=== PATIENT | male | born 1935 | race Caucasian/White ===

== ENCOUNTER 2019-11-26 15:30 | Emergency (ER) | payer MEDICARE, OTHER ==
[~2019-11-26] VITALS: Ht 170.2 cm; Wt 65.3 kg
[2019-11-26] MEDS ORDERED: OMEPRAZOLE 20 M20 M1 PO (15:44)
[2019-11-26] MEDS ORDERED: FAMOTIDINE 20 M20 MG PO (15:44)
[2019-11-26] MEDS ORDERED: LIVER COMPLEX1 EACH PO (15:45)
[2019-11-26 16:08] LABS: ABSOLUTE EOSINOPHILS 0.3 thou/uL (0.0-0.7); ABSOLUTE LYMPHOCYTES 0.7 thou/uL (0.8-5.3); ABSOLUTE MONOCYTES 0.7 thou/uL (0.0-1.2); ABSOLUTE NEUTROPHILS 6.8 thou/uL (1.6-8.1); BASOPHILS 0.4 %; EOSINOPHILS 3.2 %; HEMATOCRIT 47.1 % (42.0-52.0); HEMOGLOBIN 16.1 gm/dL (14.0-18.0); LYMPHOCYTES 8.3 %; MCH 31.7 pg (26.0-34.0); MCHC 34.2 g/dL (28.0-37.0); MCV 92.8 fL (80.0-100.0); MPV 8.1 fl. (7.2-11.1); NUCLEATED RBCS 0 /100WBC; PLATELET COUNT* 215 thou/uL (150-400); POLYS 80.1 %; RBC 5.08 mil/uL (4.50-6.00); WBC 8.5 thou/uL (4.0-11.0)
[2019-11-26 16:15] LABS: CALCIUM 8.7 mg/dL (8.5-10.1); POTASSIUM 3.9 mmol/L (3.5-5.1)
[2019-11-26 16:18] LABS: APTT 27.3 Seconds (25.0-31.3); PROTIME 10.4 Seconds (9.20-11.50)
[2019-11-26 16:26] LABS: ALBUMIN 3.2 g/dL (3.4-5.0); TOTAL BILIRUBIN 0.6 mg/dL (<0.1-1.0)
--- NOTE | 2019-11-26 16:40 | EKG ---
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 Surgery: : 1935 Requested By: Elise Bell Order Number: [id number] MD: Otis Thomas Measurements Intervals [place] Rate: 97 P: 76 NJ: 180 QRS: 42 QRSD: 99 T: 19 QT: 342 QTc: 435 Interpretive Statements Sinus rhythm Probable left atrial enlargement Low voltage, extremity leads Baseline wander in lead(s) V6 No previous ECG available for comparison Electronically Signed On 11-26-2019 16:40:35 CDT by Otis Thomas [email or web address] <ELECTRONICALLY SIGNED> By: Otis Thomas MD, [facility] 11/26/19 1640 1539 1539 Otis Thomas MD, FAC /EPI
[2019-11-26] MEDS ORDERED: VENTOLIN HFA 1818 GM INH (19:06)
[2019-11-26] MEDS ORDERED: ZPAK PO (19:06)
[2019-11-26] MEDS ORDERED: MEDROLDOSEPACK PO (19:06)
[2019-11-26 19:24] VITALS: BP 141/80
== END 2019-11-26 19:25 | disposition home or self-care (01) ==
LOC: M.ERS 15:30
PROVIDERS: Nurse Practitioner Family
DX: J44.1 Chronic obstructive pulmonary disease with (acute) exacerbation (principal); J98.8 Other specified respiratory disorders; Z20.828 Contact with and (suspected) exposure to other viral communicable diseases; Z87.891 Personal history of nicotine dependence; Z88.8 Allergy status to other drugs, medicaments and biological substances

== ENCOUNTER → 2020-05-08 | Outpatient (CLI) | payer MEDICARE, OTHER ==
[~2020-05-08] MED LIST: ASA81BEC PO; COD LIVER OIL1 EAC4 PO; DICLOFENAC PO; FAMOTIDINE 20 M20 MG PO; LIVER COMPLEX1 EACH PO; MEDROLDOSEPACK PO; OMEPRAZOLE40 MG PO; VENTOLIN HFA 1818 GM INH; ZPAK PO
== END ==
LOC: M.PC 08:14
PROVIDERS: ATTEND Physical Medicine & Rehabilitation
DX: M51.16 Intervertebral disc disorders with radiculopathy, lumbar region (principal); M47.816 Spondylosis without myelopathy or radiculopathy, lumbar region

== ENCOUNTER → 2020-06-08 | Outpatient (CLI) | payer MEDICARE, OTHER ==
--- NOTE | 2020-06-13 07:50 | PF ---
[address] [address] PULMONARY FUNCTION REPORT Name: SWAPNA WHYTE [facility] [id number] Admission: 06/08/20 Attend Phys: Earlene Purvis Discharge: Date of : 39 Report #: [id number] THIS REPORT FOR: cc: Aamir Cazares Vincent R. DO ~ Benjamin Loredo MD DATE OF SERVICE: 06/08/2020 The FEV1/FVC ratio is decreased to 45% with an FVC normal at 90% and FEV1 decreased to 59%. The [id number] is also decreased to 30%. After the administration of a bronchodilator, there is no significant change in any of these values. The patient's post-bronchodilator FEV1 is noted to be 1.26 liters. The patient's flow volume loop is concave upwards. The total lung capacity is normal at 99% with a residual volume close to the upper limit of normal range at 119%. The DLCO as adjusted for hemoglobin is markedly decreased to 33%. IMPRESSION: Per ATS criteria, the patient has moderate obstruction without evidence of reversibility; however, it is noted that there is a marked reduction in the FEV1/FVC ratio and therefore the patient's obstruction may in fact be more severe than is indicated by these values alone. Residual volume is close to the upper limit of normal range on lung volumes due to underlying obstruction. The total lung capacity is normal. The DLCO as adjusted for hemoglobin is severely decreased to only 33%. <ELECTRONICALLY SIGNED> By: Benjamin Loredo MD 06/13/20 0750 2228 [id number] Loredo MD /nt
== END ==
LOC: M.PUL 09:07
PROVIDERS: ATTEND Family Medicine
DX: J44.9 Chronic obstructive pulmonary disease, unspecified (principal)

== ENCOUNTER 2020-08-24 09:51 | Observation (INO) | payer MEDICARE, OTHER ==
[~2020-08-24] VITALS: Ht 162.6 cm; Wt 61.6 kg
--- NOTE | ~2020-08-24 | CON ---
[address] [address] CONSULTATION Name: SWAPNA WHYTE Room: [address] Etienne Randle#: [id number] Admission: 08/24/20 Attend Phys: Earlene Montelongo Discharge: Date of : 39 Report #: [id number] THIS REPORT FOR: cc: Aamir Cazares Vincent R. DO Liston, Michael J. MD [facility] ~ DOC #: [id number] cc: Aamir Glover MD CARDIOLOGY CONSULTATION INDICATIONS: Chest discomfort. HISTORY OF PRESENT ILLNESS: The patient is a very pleasant 85-year-old gentleman with history of coronary artery disease based on the findings of a coronary calcium score of 459. Stress testing a little less than 1 year ago showed normal LV systolic function with no evidence of infarct or ischemia. The patient was admitted in the hospital after having mid epigastric pressure and tenderness awakening him from sleep for the past couple of weeks. He states that he wakes up and has to sit upright for relief of his symptoms. He spends the rest of the night in an upright position, which relieves his discomfort. More recently, he has noted that he has also had some fullness and tightness in the throat area, which he reports being relieved if he gets up and moves around. He has intermittently been taking Protonix and Pepcid. He did stop this therapy several weeks ago as he was feeling this might be contributing to some fatigue he was experiencing. He had onset of his epigastric fullness and symptoms about that time. He has occasional nausea and vomiting with the discomfort, but no diaphoresis. There is no radiation of the discomfort. EKG on arrival shows sinus rhythm without significant ST segment or T-wave abnormality. There are unifocal premature ventricular contractions noted. Troponin is less than 0.06 on 2 separate occasions. He is not having any significant discomfort at the time of my interview. None of his symptomatology is exertional in nature. PAST MEDICAL HISTORY: 1. Coronary artery disease as outlined above. 2. Gastroesophageal reflux. 3. Pilonidal cyst resection many years ago. PAST SURGICAL HISTORY: 1. [place] [address] CONSULTATION Name: SWAPNA WHYTE Room: [address] Jer#: [id number] Admission: 08/24/20 Attend Phys: Earlene Montelongo Discharge: Date of : 39 Report #: [id number] 2. Laser surgery to his prostate. 3. Cataract removal. FAMILY HISTORY: Essentially noncontributory. The patient's mother had CHF, but there was no history of coronary artery disease. No history of sudden in the family. SOCIAL HISTORY: The patient is . He drinks alcohol rarely. He does not smoke. 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 ALLERGIES: TETRACYCLINE CAUSES A RASH ON HIS UPPER TRUNK. CURRENT MEDICATIONS: He is taking Protonix and Pepcid presently. REVIEW OF SYSTEMS: The 14-point review of systems is positive for intermittent cough. He has pneumonia as a child. He reports palpitations for the past 5 years. He reports chest discomfort as outlined above. He reports trace ankle edema noted on physical exam recently. He reports vomiting without hematemesis. He reports possible ulcers. He reports blood in the urine after his laser prostatectomy. He has seasonal allergies and medical allergies as outlined above. 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 He wears glasses without acute visual change. He has decreased hearing and wears dentures. Otherwise, 14-point review of systems was unremarkable. PHYSICAL EXAMINATION: VITAL SIGNS: Stable. Blood pressure 176/111, pulse 105. GENERAL: This is a pleasant elderly gentleman in no distress. Mood and affect appropriate. HEENT: Extraocular muscles intact. Mucous membranes are moist. NECK: Examination of the neck shows no jugular venous distention. I do not appreciate carotid bruit. CHEST: Reveals clear lung macias without wheezes or rales. CARDIAC: Reveals a regular rhythm. I do not appreciate gallop or murmur. ABDOMEN: Examination of the abdomen reveals normal bowel sounds. The abdomen is soft and nontender. EXTREMITIES: Examination of the extremities show no edema. SKIN: Warm and dry. LABORATORY DATA: A 12-lead EKG shows sinus rhythm with no significant ST segment abnormality. There are occasional unifocal premature ventricular contractions noted. Echocardiogram shows normal LV systolic function, grade I diastolic dysfunction. No evidence of chamber enlargement [place] [address] CONSULTATION Name: SWAPNA WHYTE Room: [address] Etienne Randle#: [id number] Admission: 08/24/20 Attend Phys: Earlene Montelongo Discharge: Date of : 39 Report #: [id number] Labs are reviewed. Sodium 141, potassium 3.5, chloride 104, bicarbonate 30, BUN 11, creatinine 0.9, serum glucose 106. LFTs within normal limits. Troponin less than 0.06 on 2 separate occasions. NT-proBNP 559. Coags within normal limits. Hemoglobin 16.5, white blood cell count 7.4 and platelet count 233,000. Chest x-ray showed no acute cardiopulmonary abnormality. IMPRESSION AND RECOMMENDATION: 1. Chest discomfort, atypical for angina or ischemic coronary disease. I suspect this is gastrointestinal in nature. I would recommend GI evaluation and upper GI. He is ruled out for myocardial infarction. If the pain persists and no source is found with EGD, we would consider outpatient stress testing. 2. Coronary artery disease, presently stable. I would recommend a daily aspirin after his GI evaluation. We would recommend we evaluate lipid status to see if lipid lowering would be indicated which likely is. 3. Hypertension. Blood pressure moderately elevated. The patient is not traditionally on blood pressure medications at home. He may benefit from low dose beta dick, which will be started at this time. 4. PVCs generally asymptomatic. No specific treatment at this time. 5. Grade I diastolic dysfunction on echocardiogram, age appropriate. MD SHELLI OatesL/MARVIN By: 1545 [id number] Glover MD, FACC /nt
[2020-08-24 09:54] VITALS: BP 190/110
[2020-08-24] MEDS ORDERED: ARTIFICIAL TEAR1510 OPHTHALMIC (09:57)
[2020-08-24 10:17] LABS: ABSOLUTE EOSINOPHILS 0.1 thou/uL (0.0-0.7); ABSOLUTE MONOCYTES 0.5 thou/uL (0.0-1.2); ABSOLUTE NEUTROPHILS 5.7 thou/uL (1.6-8.1); EOSINOPHILS 1.6 %; WBC 7.4 thou/uL (4.0-11.0)
[2020-08-24 10:20] LABS: ABSOLUTE BASOPHILS 0.1 thou/uL (0.0-0.2); BASOPHILS 0.8 %; HEMATOCRIT 49.2 % (42.0-52.0); HEMOGLOBIN 16.5 gm/dL (14.0-18.0); LYMPHOCYTES 13.8 %; MCH 30.9 pg (26.0-34.0); MCHC 33.5 g/dL (28.0-37.0); MCV 92.3 fL (80.0-100.0); MONOCYTES 6.4 %; MPV 8.5 fl. (7.2-11.1); NUCLEATED RBCS 0 /100WBC; PLATELET COUNT* 233 thou/uL (150-400); POLYS 77.4 %; RBC 5.32 mil/uL (4.50-6.00); RDW-CV 13.9 % (10.5-14.5)
[2020-08-24 10:22] LABS: CALCIUM 9.6 mg/dL (8.5-10.1); CREATININE 0.9 mg/dL (0.6-1.3); POTASSIUM 3.5 mmol/L (3.5-5.1)
[2020-08-24 10:33] LABS: ALBUMIN 3.4 g/dL (3.4-5.0); MAGNESIUM 2.3 mg/dL (1.8-2.4); TOTAL PROTEIN 7.6 g/dL (6.4-8.2)
[2020-08-24 14:33] VITALS: BP 176/111
--- NOTE | 2020-08-24 15:48 | EKG ---
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 08/24/20 1547 0956 0956 Otis Thomas MD, [facility] /EPI
[2020-08-24 19:30] VITALS: BP 109/64
--- NOTE | 2020-08-24 23:28 | NUR ---
ASSUMED PATIENT CARE AT 1930. PATIENT UP IN CHAIR. REASSESMENT CHARTED. CURRENTLY DENIES ANY CHEST PAIN. NOTED IMPROVEMENT IN BP FROM ADMINISTRATION OF METROPROLOL ON PREVIOUS SHIFT. CONTINUE TO MONITOR.
[2020-08-25] VITALS: BP 104/62
--- NOTE | 2020-08-25 02:48 | NUR ---
PATIENT AWAKE AT 0237 WITH STATED FULLNESS IN CHEST. NO SIGNIFICANT CHANGES ON MONITOR. (SR WITH PVC'S AT 88 BPM) STRIP PRINTED AND PLACED IN CHART FOR REFERENCE. CONTINUE TO MONITOR.
[2020-08-25 04:00] VITALS: BP 112/76
[2020-08-25 04:15] LABS: HEMATOCRIT 46.7 % (42.0-52.0); HEMOGLOBIN 15.1 gm/dL (14.0-18.0); MCH 30.1 pg (26.0-34.0); MCHC 32.2 g/dL (28.0-37.0); MCV 93.4 fL (80.0-100.0); MPV 8.4 fl. (7.2-11.1); RBC 5.01 mil/uL (4.50-6.00); RDW-CV 13.7 % (10.5-14.5); WBC 6.6 thou/uL (4.0-11.0)
[2020-08-25 04:27] LABS: ANION GAP 7 mmol/L (7-16); BUN 15 mg/dL (7-18); CHLORIDE 104 mmol/L (98-107); CHOLESTEROL 200 mg/dL (<200); CO2 29 mmol/L (21-32); CREATININE 0.9 mg/dL (0.6-1.3); GLUCOSE 102 mg/dL (70-99); HDL CHOLESTEROL 67 mg/dL (>40); LDL CHOLESTEROL 113 mg/dL (<100); POTASSIUM 3.8 mmol/L (3.5-5.1); SODIUM 140 mmol/L (136-145); TRIGLYCERIDE 102 mg/dL (<150); VLDL 20 mg/dL (<40)
[2020-08-25 04:43] LABS: SERUM ASSESSMENT CLEAR
[2020-08-25 08:00] VITALS: BP 132/87
[2020-08-25] MEDS ORDERED: TOPROL XL50 MG PO (10:14)
--- NOTE | 2020-08-25 12:30 | 2DMMODE ---
[place] [address] 2 D/M-MODE ECHOCARDIOGRAM Name: SWAPNA WHYTE Room: [address] Etienne Randle#: [id number] Admission: 08/24/20 Attend Phys: Brady Jurado Discharge: Date of : 39 Date of Service: 08/25/20 1230 Report #: [id number] THIS REPORT FOR: cc: Aamir Cazares,Aamir Dale,Otis Hull MD [facility] ~ ADDENDUM APPROVED REPORT Study performed: 08/24/2020 16:03:01 EXAM: Comprehensive 2D, Doppler, and color-flow Echocardiogram Patient Location: In-Patient Room #: [facility] Status: routine BSA: 1.64 HR: 66 bpm BP: 176/111 mmHg Rhythm: NSR Other Information Study Quality: Excellent Indications Chest Pressure CAD 2D Dimensions IVSd: 9.26 (7-11mm) LVOT Diam: 20.08 (18-24mm) LVDd: 45.15 mm PWd: 9.81 (7-11mm) Ascending Ao: 34.48 (22-36mm) LVDs: 34.40 (25-40mm) Aortic Root: 35.97 mm Volumes Left Atrial Volume (Systole) LA ESV Index: 22.40 mL/m2 Aortic Valve AoV Peak Payam.: 1.14 m/s AO Peak Gr.: 5.22 mmHg LVOT Max P.54 mmHg AO Mean Gr.: 3.22 mmHg LVOT Mean P.47 mmHg LVOT Max V: 0.94 m/s AO V2 VTI: 22.89 cm LVOT Mean V: 0.55 m/s MATTEO (VTI): 2.45 cm2 LVOT V1 VTI: 17.73 [place] [address] 2 D/M-MODE ECHOCARDIOGRAM Name: SWAPNA WHYTE Room: [address] M.R.#: [id number] Admission: 08/24/20 Attend Phys: Brady Jurado Discharge: Date of : 39 Date of Service: 08/25/20 1230 Report #: [id number] Mitral Valve E/A Ratio: 0.64 MV Decel. Time: 304.23 ms MV E Max Payam.: 0.52 m/s MV PHT: 88.23 ms MVA (PHT): 2.49 cm2 TDI E/Lateral E': 10.40 E/Medial E': 5.78 Medial E' Payam.: 0.09 m/s Lateral E' Payam.: 0.05 m/s Pulmonary Valve PV Peak Payam.: 0.78 m/s PV Peak Gr.: 2.45 mmHg Tricuspid Valve RAP Estimate: 5.00 mmHg TR Peak Gr.: 22.57 mmHg RVSP: 27.00 mmHg PA Pressure: 27.00 mmHg Left Ventricle The left ventricle is normal size. There is normal LV segmental wall motion. There is normal left ventricular wall thickness. The left ventricular systolic function is normal. LVEF is 60-65%. Transmitral Doppler flow pattern suggests impaired LV relaxation. Right Ventricle The right ventricle is normal size. The right ventricular systolic function is normal. Atria The left atrium size is normal. The right atrium size is normal. Aortic Valve The Aortic valve is sclerotic. No aortic regurgitation is present. There is no aortic valvular stenosis. Mitral Valve The mitral valve is normal in structure. Trace to mild mitral regurgitation. No evidence of mitral valve stenosis. Tricuspid Valve The tricuspid valve is normal in structure. Mild tricuspid regurgitation. [place] [address] 2 D/M-MODE ECHOCARDIOGRAM Name: SWAPNA WHYTE Room: [address]#: [id number] Admission: 08/24/20 Attend Phys: Brady Jurado Discharge: Date of : 39 Date of Service: 08/25/20 1230 Report #: [id number] Pulmonic Valve Pulmonic valve is not well visualized. There is no pulmonic valvular regurgitation. Great Vessels The aortic root is normal in size. IVC is normal in size and collapses >50% with inspiration. Pericardium There is no pericardial effusion. <Conclusion> LVEF is 60-65%. Trace to mild mitral regurgitation. <ELECTRONICALLY SIGNED> By: Otis Thomas MD, FACC 08/25/20 1230 1230 1230 Otis Thomas MD, FACC /INF
--- NOTE | 2020-08-25 13:50 | NUR ---
Pt is A&O. Resides at home with . Independent. No DME. No hx of HH or SNF. Anticipate dc later today after cardiology consult. No needs.
[2020-08-25 14:45] VITALS: BP 132/87
== END 2020-08-25 15:00 | disposition home or self-care (01) ==
LOC: M.ERS 09:51 → M.TBA-ER 11:04 → M.2W 14:44
PROVIDERS: Emergency Medicine Emergency Medical Services; ADMIT Internal Medicine; ATTEND Internal Medicine
DX: R07.89 Other chest pain (principal); Z20.822 Contact with and (suspected) exposure to COVID-19; R53.83 Other fatigue; J44.9 Chronic obstructive pulmonary disease, unspecified; K21.9 Gastro-esophageal reflux disease without esophagitis; I10 Essential (primary) hypertension; I25.10 Atherosclerotic heart disease of native coronary artery without angina pectoris; Z79.899 Other long term (current) drug therapy

== ENCOUNTER → 2020-10-09 | Outpatient (CLI) | payer OTHER ==
[~2020-10-09] MED LIST changes: +ARTIFICIAL TEAR1510 OPHTHALMIC; +TOPROL XL50 MG PO
== END ==
LOC: M.CT 09:43
PROVIDERS: ATTEND Internal Medicine Critical Care Medicine
DX: M47.814 Spondylosis without myelopathy or radiculopathy, thoracic region (principal); R06.02 Shortness of breath